=== PATIENT | male | born 1975 | race Two or more races ===

== ENCOUNTER 2025-07-11 13:27 | Inpatient (IN) | payer OTHER ==
[~2025-07-11] VITALS: Ht 177.8 cm; Wt 74.3 kg
[2025-07-11] MEDS: LABETALOL HCL 200 MG TAB PO ONE (15:30)
--- NOTE | 2025-07-11 15:31 | ED.PDOC ---
Psychiatric HPI Comments Reyes Hathaway is a 50-year-old male with past medical history of s chizophrenia, bipolar disorder and hypertension. The patient came to the ED with chief complain of 5 days of suicidal thoughts, thinking to hurt himself by cutting his wrists with a knife, associated with depressive mood, auditory and visual hallucinations. The patient denies thought of hurting others. On further questioning the patient reports he has run out his medications for schizophrenia and bipolar disorder 2 month ago. Today, the patient report having more hallucinations that tell him to hurt himself, this prompted his visit to the ED. Psychiatry consult was placed. Chief Complaint: Suicidal Time Seen by MD: 14:13 Reviewed Notes: Nurses Notes, Strip Picker Notes, Medications, Allergies Information Source: Patient Mode of Arrival: Ambulatory Severity: Unable to Care for Self Timing: Days Duration: Days Presents with: Depression, Unclear Thinking, Suicidal Ideation Attempt: Other (only thoughts to cut his wrists. ) Past Medical History PAST MEDICAL HISTORY: Depression, Schizophrenia Past Medical History (Other): Bipolar disorder Surgical History: Denies all surgeries Family History Family History: Reviewed,noncontributory to illness Social History Smoker: Cigarettes, Greater Than 1 Pack/Day Alcohol: Occasionally Drugs: Cocaine, Marijuana, Methamphetamine Lives In: Homeless Constitutional: denies: chills, diaphoresis, fatigue, fever, malaise, sweats, weakness, others EENTM: denies: blurred vision, double vision, ear bleeding, ear discharge, ear drainage, ear pain, ear ringing, eye pain, eye redness, hearing loss, mouth pain, mouth swelling, nasal discharge, nose bleeding, nose congestion, nose pain, photophobia, tearing, throat pain, throat swelling, voice changes, others Respiratory: denies: cough, hemoptysis, orthopnea, SOB at rest, shortness of breath, SOB with excertion, stridor, wheezing, others Cardiovascular: denies: chest pain, dizzy spells, diaphoresis, Dyspnea on e xertion, edema, irregular heart beat, left arm pain, lightheadedness, palpitations, PND, syncope, others Gastrointestinal: denies: abdomen distended, abdominal pain, blood streaked bowels, constipated, diarrhea, dysphagia, difficulty swallowing, hematemesis, melena, nausea, poor appetite, poor fluid intake, rectal bleeding, rectal pain, vomiting, others Genitourinary: denies: burning, dysuria, flank pain, frequency, hematuria, incontinence, penile discharge, penile sore, pain, testicle pain, testicle swelling, urgency, others Neurological: denies: dizziness, fainting, headache, left sided numbness, left sided weakness, numbness, paresthesia, pre-existing deficit, right sided numbness, right sided weakness, seizure, speech problems, tingling, tremors, weakness, others Musculoskeletal: denies: back pain, gout, joint pain, joint swelling, muscle pain, muscle stiffness, neck pain, others Integumetry: denies: bruises, change in color, change in hair/nails, dryness, laceration, lesions, lumps, rash, wounds, others Allergic/Immunocompromised: denies: Difficulty Healing, Frequent Infections, Hives, Itching, others Hematologic/Lymphatic: denies: anemia, blood clots, easy bleeding, easy bruising, swollen glands, others Endocrine: denies: excessive hunger, excessive sweating, excessive thirst, excessive urination, flushing, intolerance to cold, intolerance to heat, unexplained weight gain, unexplained weight loss, others Psychiatric: reports: bipolar disorder, depression, schizophrenia, suicidal Physical Exam Exam Comments Patient is alert, oriented x3 General Appearance: No Apparent Distress, Normal HEENT: Normal ENT Inspection, Pharynx Normal, TMs Normal Neck: Full Range of Motion, Non-Tender, Normal, Normal Inspection Respiratory: Chest Non-Tender, Lungs Clear, No Accessory Muscle Use, No Respiratory Distress, Normal Breath Sounds Cardiovascular: No Edema, No JVD, No Murmur, No Gallop, Normal Peripheral Pulses, Regular Rate/Rhythm Breast Exam: Deferred Gastrointestinal: No Organomegaly, Non Tender, No Pulsatile Mass, Normal Bowel Sounds, Soft Genitalia: Deferred Pelvic: Deferred Rectal: Deferred Extremities: No calf tenderness, Normal capillary refill, Normal inspection, Normal range of motion, Non-tender, No pedal edema Musculoskeletal : Apperance: Normal Neurologic: Alert (oriented x 3), summer camp counselor II-XII nml as Tested, No Motor Deficits, Normal Affect, Normal Mood, No Sensory Deficits Cerebellar Function: Normal Reflexes: Normal Skin: Dry, Normal Color, Warm Lymphatic: No Adenopathy Was a procedure done? Was a procedure done?: No Psych Differential Dx Psych. Differential Dx: Bipolar Disorder, Schizoprenia, Suicidal Suicidal Differential Dx: Bipolar Disorder, Substance Abuse X-Ray, Labs, Meds, VS Vital Signs Date Time Temp Pulse Resp B/P (MAP) Pulse Ox O2 Delivery O2 Flow Rate FiO2 07/11/25 18:31 109 20 162/111 (128) 98 07/11/25 13:30 98.2 129 18 151/112 96 98.2 Lab Test 07/11/25 15:00 Range/Units Urine Opiates Screen Neg NEGATIVE Urine Fentanyl Screen Neg NEGATIVE Urine Barbiturates Screen Neg NEGATIVE Urine Phencyclidine Screen Neg NEGATIVE Urine Amphetamines Screen Pos NEGATIVE Urine Benzodiazepines Screen Neg NEGATIVE Urine Cocaine Screen Neg NEGATIVE Urine Cannabinoids Screen Pos NEGATIVE X-Ray, Labs, Meds, VS Comment The patient was re-evaluated, he reports persistence of suicidal thoughts. Time of 1ST Reevaluation: 15:29 Reevaluation 1ST: Unchanged Patient Education/Counseling: Diagnosis, Treatment, Prognosis, Need For Follow Up Family Education/Counseling: No Family Present Departure 1 Departure Time of Disposition: 19:55 Impression: Primary Impression: Schizophrenia Additional Impression: Suicidal ideations Disposition: 09 ADMITTED INPATIENT Admit to: Med Surg (5150 hold for danger to self) Condition: Good Comments Discussed plan of care with Dr. Veronica Code status: Full code PCP: Not established Plan discussed with: Patient, the patient agrees with the admission plan. Critical Care Note Critical Care Time?: No Stability Stability form required: No Heart Score Heart Score: Heart Score Response (Comments) Value History N/A 0 EKG N/A 0 Age N/A 0 Risk Factors N/A 0 Troponin N/A 0 Total 0 DINA HUDSON RESIDENT Jul 11, 2025 15:30
--- NOTE | 2025-07-11 16:26 | DVHINCON2 ---
Date of Service if different f: Jul 11, 2025 Time of Service: 16:25 Consultation (GERALDINE) Labs Laboratory Tests Test 07/11/25 15:00 Vitals Vital Signs Date Time Temp Pulse Resp B/P (MAP) Pulse Ox O2 Delivery O2 Flow Rate FiO2 07/11/25 13:30 98.2 129 18 151/112 96 98.2 PSYCHIATRY CONSULTATION INITIAL EVALUATION REASON FOR CONSULT: SI HPI: 50yo M, history of Schizophrenia, who self-reported to the ED c/o SI. Per pt, he has been off his medication several weeks. He stopped them because they have not been helpful. He reports taking Zyprexa but cannot recall the dose, says he was on the medication for years. He reports ongoing command AH. Does not give details of what he hears. He says AH have been ongoing for 10 years, and denies any period that they have been better. He presented for help today because he feels like he is suffering. He subsequently had thoughts to go to a local bridge and jump. He reports h/o of suicide attempt over 20 years ago. He denies access to firearms. He reports use of meth 2 days ago, says he only uses on occasion. He reports daily alcohol use, does not quantify. He reports h/o tremors on withdrawal, but denies history of DTs. Pt does not feel safe to discharge. He thinks he may try to kill himself if he leaves the hospital. PSYCHIATRIC HISTORY: DIAGNOSIS: Reports h/o Schizophrenia ADMISSIONS: In the past, but denies any in recent years. MEDICATION TRIALS: Has trialed Risperidone, recently on Zyprexa. Says the medication that worked was Seroquel, recalls being on 600 mg nightly. OUTPATIENT CARE: Denies current care THERAPY: Denies current care SI/SELF-INJURY/SUICIDE ATTEMPT: reports h/o of suicide attempt over 20 years ago SUBSTANCE USE:per above RELEVANT MEDICAL HISTORY: HTN Hyperthyroidism SOCIAL HISTORY: Homeless ALLERGIES: Denies any MENTAL STATUS EXAMINATION: 50-year-old male who appears disheveled. He is calm but somewhat restless, with poor eye contact, though he remains cooperative during the interview. Speech is soft, of slowed rate, and minimally spontaneous, though coherent. His mood is described as suffering and his affect is constricted and dysphoric. Thought process is generally linear but slowed. Thought content is notable for active suicidal ideation with a stated plan to jump from a bridge, as well as ongoing command auditory hallucinations; he denies homicidal ideation. No overt delusions are elicited, though he endorses longstanding psychotic symptoms. Perceptually, he continues to experience chronic auditory hallucinations of a commanding nature. Cognition is grossly intact; he is alert and oriented to person, place. Insight is poor, judgment is impaired, as evidenced by medication nonadherence, substance use, and his stated intent to harm himself if discharged. DIFFERENTIAL DIAGNOSIS: Schizophrenia, chronic, with acute exacerbation Substance-induced psychotic disorder (methamphetamine-related) Major Depressive Disorder with psychotic features Schizoaffective disorder, depressive type Substance use disorders (methamphetamine, alcohol) Alcohol withdrawal risk (given daily use and reported tremors on cessation) ASSESSMENT: This is a 50-year-old homeless male with a known history of schizophrenia, recent medication nonadherence, daily alcohol use, and recent methamphetamine use who presents to the ED with active suicidal ideation and ongoing command auditory hallucinations. He has a history of prior suicide attempt and reports he may kill himself if discharged. He lacks current outpatient psychiatric care and social supports. Risk is high given active suicidal ideation with plan, ongoing command hallucinations, medication nonadherence, history of suicide attempt, homelessness and lack of social support, ongoing substance use. Protective factors are minimal. The patient himself states he does not feel safe to leave the hospital. He meets criteria for a 5150 (danger to self) hold and requires inpatient psychiatric hospitalization for stabilization, safety, and medication management. RECOMMENDATIONS: 1. LEGAL: Initiate 5150 hold for danger to self (active SI with plan, poor supports, ongoing psychosis). 2. DISPOSITION: Refer for inpatient psychiatric admission for safety, stabilization, and medication management. 3. MEDICATIONS: Restart Zyprexa 20 mg nightly as previously tolerated. Defer additional medication changes to the inpatient psychiatric team. 4. MEDICAL CONSIDERATIONS - Monitor for alcohol withdrawal given daily alcohol use and history of tremors. - Consider CIWA protocol, thiamine, folate, and multivitamins. - Routine labs (CMP, CBC, TSH, urine tox) and EKG if not already obtained. BUCKY MAO MD Jul 11, 2025 16:25
[2025-07-11 16:44] LABS: Amphetamine Screen, Urine Pos (NEGATIVE); Barbiturate Scree,Urine Neg (NEGATIVE); Benzodiazephine Screen, Urine Neg (NEGATIVE); Cannabinoid Screen, Urine Pos (NEGATIVE); Cocaine Screen, Urine Neg (NEGATIVE); Opiate Scree,Urine Neg (NEGATIVE); Phencyclidine Screen, Urine Neg (NEGATIVE)
[2025-07-11] MEDS: OLANZapine 5 MG TAB PO ONE (20:00)
[2025-07-11 20:48] VITALS: PULSE 78; RESP 20; O2SAT 97
[2025-07-11] MEDS: OLANZapine 5 MG TAB PO SCH (21:30)
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
[2025-07-11 21:59] LABS: Urine Protein, UAD TRACE (Negative)
[2025-07-11 22:09] LABS: INR 1.07 (0.9-1.15); Magnesium 2.0 mg/dL (1.6-2.6); Partial Thromboplastin Time 27.6 SEC (24.5-34.5); Prothrombin Time 11.3 sec (9.3-11.8); Triglycerides 42 mg/dL (< 150)
[2025-07-11 22:11] LABS: Cholesterol 157 mg/dL (< 200); HDL Cholesterol 55 mg/dL (40-59)
[2025-07-11 22:35] LABS: Lipase 62 U/L (12-53)
[2025-07-11 22:52] LABS: Hematocrit 42.7 % (41.0-53.0); Hemoglobin 14.6 g/dL (13.5-17.5); Mean Corpuscular Hemoglobin 31.5 pg (28.0-32.0); Mean Corpuscular Volume 92.3 fL (80.0-100.0); Nucleated Red Blood Cells % 0.1 %
[2025-07-11 23:11] LABS: Albumin 4.1 g/dL (3.2-4.8); Alkaline Phosphatase 72 U/L (46-116); Anion Gap 10 (5-15); BUN/Creatinine Ratio 13.5 (10.0-20.0); Blood Urea Nitrogen 13 mg/dL (9-23); Calcium 9.2 mg/dL (8.7-10.4); Carbon Dioxide 25 mmol/L (20-31); Chloride 104 mmol/L (98-107); Potassium 4.0 mmol/L (3.5-5.1); Sodium 139 mmol/L (136-145); Total Protein 7.5 g/dL (5.7-8.2)
[2025-07-11 23:12] LABS: Alanine Aminotransferase 139 U/L (7-40); Bilirubin, Total 0.7 mg/dL (0.2-1.0); Glucose 114 mg/dL (74-106)
[2025-07-11 23:14] LABS: Free T4 (Free Thyroxine) 0.92 ng/dL (0.89-1.76)
[2025-07-12 00:32] VITALS: BP 117/81; PULSE 79; RESP 19; TEMP 97.5; O2SAT 100
[2025-07-12 00:34] VITALS: BP 117/81; PULSE 79; RESP 19; TEMP 97.5; O2SAT 100
[2025-07-12 05:00] VITALS: BP 106/67; PULSE 74; RESP 19; TEMP 98; O2SAT 95
[2025-07-12] MEDS: LORazepam 2MG/ML-1ML VIAL IV SCH (05:10)
--- NOTE | 2025-07-12 05:27 | DVH ---
CHEST RADIOGRAPH Indication: Aspiration PNA Technique: Single frontal view of the chest was obtained COMPARISON: XR CHEST 1 VIEW on DOS: 07/06/25, XR CHEST 1 VIEW on DOS: 07/13/24 FINDINGS: Lines and Tubes: None Lungs: Clear Pleura: No effusion. No pneumothorax. Cardiomediastinal contours: Unremarkable Bones: Unremarkable IMPRESSION: 1. No acute disease.
[2025-07-12 05:58] LABS: Hematocrit 44.0 % (41.0-53.0); Hemoglobin 15.2 g/dL (13.5-17.5); Mean Corpuscular Hemoglobin 31.8 pg (28.0-32.0); Mean Corpuscular Volume 92.0 fL (80.0-100.0); Nucleated Red Blood Cells % 0.1 %
[2025-07-12 06:20] LABS: Albumin 3.9 g/dL (3.2-4.8); Alkaline Phosphatase 69 U/L (46-116); Anion Gap 10 (5-15); BUN/Creatinine Ratio 15.2 (10.0-20.0); Blood Urea Nitrogen 14 mg/dL (9-23); Calcium 9.0 mg/dL (8.7-10.4); Carbon Dioxide 26 mmol/L (20-31); Chloride 105 mmol/L (98-107); Glucose 78 mg/dL (74-106); Potassium 3.9 mmol/L (3.5-5.1); Sodium 141 mmol/L (136-145); Total Protein 7.1 g/dL (5.7-8.2)
[2025-07-12 06:21] LABS: Bilirubin, Total 0.8 mg/dL (0.2-1.0)
[2025-07-12 06:36] LABS: Alanine Aminotransferase 134 U/L (7-40)
[2025-07-12 08:00] VITALS: PULSE 86; RESP 18; O2SAT 98
[2025-07-12 09:00] VITALS: BP 114/82; PULSE 84; RESP 17; TEMP 98; O2SAT 100
[2025-07-12] MEDS: ENOXAPARIN SOD 40 MG/0.4 ML SYRINGE SC SCH (10:00)
[2025-07-12] MEDS: PANTOPRAZOLE 40 MG/10 ML VIAL INJ IV SCH (10:15)
[2025-07-12] MEDS: FOLIC ACID 1 MG TAB PO SCH (10:16)
[2025-07-12] MEDS: THIAMINE HCL 100 MG TAB PO SCH (10:16)
--- NOTE | 2025-07-12 12:51 | DVHPN2 ---
Subjective Denies any symptoms Reviewed: Care Plan, H&P, Labs, Medications Changes from previous H/P or p: No Changes General: Per HPI Objective Vitals Vital Signs Date Time Temp Pulse Resp B/P (MAP) Pulse Ox O2 Delivery O2 Flow Rate FiO2 07/12/25 09:00 98.0 84 17 114/82 (93) 100 98.0 07/12/25 08:00 Room Air* 0 21 Intake/Output Intake and Output 07/12/25 07:00 Intake Total 240 ml Balance 240 ml Intake Oral 240 ml General Appearance: Alert, Cooperative HEENT: Atraumatic, PERRLA Lungs: Clear to auscultation, Normal air movement Cardiovascular: Normal S1, Normal S2 Abdomen: Normal bowel sounds, Soft, No tenderness, No hepatospenomegaly Genitourinary: No Apparent Abnormalities Musculoskeletal: Normal sensory function, Normal motor function Neuro: Cranial nerves 3-12 NL Skin: Dry, Intact Psych/Mental Status: Other (Continues to have suicidal ideation) Medications Current Medications Medications Dose Ordered Sig/Tayler Route Start Time Stop Time Status Last Admin Dose Admin Enoxaparin Sodium 40 mg DAILY SC 07/11/25 21:30 Olanzapine 20 mg DAILY PO 07/11/25 21:30 07/12/25 10:16 20 MG Thiamine HCl 100 mg DAILY PO 07/12/25 10:00 07/12/25 10:16 100 MG Folic Acid 1 mg DAILY PO 07/12/25 10:00 07/12/25 10:16 1 MG Lorazepam 1 mg Q6H IV 07/11/25 21:30 07/12/25 11:50 1 MG Pantoprazole Sodium 40 mg DAILY IV 07/12/25 10:00 07/12/25 10:15 40 MG Laboratory Results Laboratory Tests 07/12/25 05:06 Chemistry Test 07/11/25 21:43 07/11/25 21:45 07/12/25 05:06 Magnesium Level 2.0 mg/dL (1.6-2.6) Phosphorus Level 3.3 mg/dL (2.4-5.1) Albumin 4.1 g/dL (3.2-4.8) 3.9 g/dL (3.2-4.8) Calcium Level 9.2 mg/dL (8.7-10.4) 9.0 mg/dL (8.7-10.4) Total Protein 7.5 g/dL (5.7-8.2) 7.1 g/dL (5.7-8.2) Coagulation Test 07/11/25 21:43 Prothrombin Time 11.3 sec (9.3-11.8) Prothrombin Time INR 1.07 (0.9-1.15) Activated Partial Thromboplast Time 27.6 SEC (24.5-34.5) Lipid panel Test 07/11/25 21:43 Cholesterol Level 157 mg/dL (< 200) HDL Cholesterol 55 mg/dL (40-59) Lipase 62 U/L (12-53) H Triglycerides Level 42 mg/dL (< 150) LFT Test 07/11/25 21:45 07/12/25 05:06 Alanine Aminotransferase (ALT) 139 U/L (7-40) H 134 U/L (7-40) H Alkaline Phosphatase 72 U/L (46-116) 69 U/L (46-116) Aspartate Amino Transferase (AST) 75 U/L (13-40) H 72 U/L (13-40) H Total Bilirubin 0.7 mg/dL (0.2-1.0) 0.8 mg/dL (0.2-1.0) HgA1c, TSH Test 07/11/25 21:43 Hemoglobin A1c 4.9 % A1C (<5.7) Thyroid Stimulating Hormone (TSH) 17.42 uIU/mL (0.55-4.78) H Urinalysis Test 07/11/25 15:00 Urine Color Yellow (Yellow) Urine Clarity Clear (Clear) Urine pH 6.5 (5.0-9.0) Urine Specific [place] 1.031 (1.001-1.035) Urine Protein Trace (Negative) H Urine Ketones Negative (Negative) Urine Blood Negative /uL (Negative) Urine Nitrite Negative (Negative) Urine Bilirubin Negative (Negative) Urine Urobilinogen Normal mg/dL (Negative) Urine Leukocyte Esterase Negative /uL (Negative) Urine RBC 1 /hpf (0 - 3) Urine Microscopic WBC 1 /HPF (0-3) Urine Squamous Epithelial Cells Few /hpf (<5) Urine Bacteria None seen /hpf (None Seen) Urine Mucus Few (None Seen) Urine Glucose Normal mg/dL (Normal) Labs and/or images reviewed: Labs reviewed by me, Image(s) reviewed by me Assessment/Plan Assessment/Plan Impression: -Suicidal Ideation with Recommendation for 5150 and transfer to inpatient psychiatry -Polysubstance abuse Plan: -Psych consult recommendations reviewed: Continue with Zyprexa -Social service consult for Transfer to inpatient psychiatry -1:1 sitter Total time spent with patient discussing and formulating plan of care: 35 minutes. This medical document was created using an electronic medical record system with [employer] dictation system. Although this document has been carefully reviewed, there may still be some phonetic and typographical errors. These areas are purely typographical due to imperfections of the software programs, and do not reflect any compromise in the patient's medical care. Plan discussed with: Patient, Other (RN) My Orders Orders - JULIA BAER NP Procedure Category Date Status Time * Sales Advisor CONS 07/12/25 Transmitted Consult Communication Order ORDERS 07/12/25 Transmitted 11:34 Date of Service: Jul 12, 2025 Billing Provider: JULIA BAER NP Common Visit Codes: [id number] INP/OBS CARE(HIGH) JULIA BAER NP Jul 12, 2025 12:51
[2025-07-12 21:00] VITALS: BP 118/80; PULSE 79; RESP 18; TEMP 97.3; O2SAT 98
[2025-07-13 01:00] VITALS: BP 107/78; PULSE 74; RESP 17; O2SAT 96
[2025-07-13 04:11] VITALS: BP 107/78; PULSE 74; RESP 17; TEMP 97.3; O2SAT 96
[2025-07-13 05:00] VITALS: BP 113/87; PULSE 71; RESP 17; TEMP 97.4; O2SAT 95
[2025-07-13 08:00] VITALS: PULSE 80; RESP 18; O2SAT 97
[2025-07-13 08:49] VITALS: BP 114/87; PULSE 80; RESP 18; TEMP 97.6; O2SAT 95
[2025-07-13 12:32] VITALS: BP 111/79; PULSE 77; RESP 18; TEMP 97.8; O2SAT 93
--- NOTE | 2025-07-13 12:38 | DVHDS2 ---
Discharge Summary Date of Admission Jul 11, 2025 at 21:19 Date of Discharge: Jul 13, 2025 Admitting Diagnosis Suicidal ideation Labs/Diagnostic Data: Laboratory Results Test 07/12/25 05:06 07/11/25 21:45 07/11/25 21:43 07/11/25 15:00 White Blood Count 4.8 10^3/uL (4.4-10.8) Red Blood Count 4.78 10^6/uL (4.5-5.90) Hemoglobin 15.2 g/dL (13.5-17.5) Hematocrit 44.0 % (41.0-53.0) Mean Corpuscular Volume 92.0 fL (80.0-100.0) Mean Corpuscular Hemoglobin 31.8 pg (28.0-32.0) Mean Corpuscular Hemoglobin Concent 34.6 g/dL (32.0-36.0) Red Cell Distribution Width 14.2 % (11.8-14.3) Platelet Count 190 10^3/uL (140-450) Mean Platelet Volume 8.7 fL (6.9-10.8) Neutrophils (%) (Auto) 51.9 % (37.0-80.0) Lymphocytes (%) (Auto) 34.3 % (10.0-50.0) Monocytes (%) (Auto) 9.3 % (0.0-12.0) Eosinophils (%) (Auto) 4.1 % (0.0-7.0) Basophils (%) (Auto) 0.4 % (0.0-2.0) Neutrophils # (Auto) 2.5 10 ^3/uL (1.6-8.6) Lymphocytes # (Auto) 1.7 10 ^3/uL (0.4-5.4) Monocytes # (Auto) 0.4 10 ^3/uL (0-1.3) Eosinophils # (Auto) 0.2 10 ^3/uL (0-0.8) Basophils # (Auto) 0 10 ^3/uL (0-0.2) Nucleated Red Blood Cells 0.1 % Sodium Level 141 mmol/L (136-145) Potassium Level 3.9 mmol/L (3.5-5.1) Chloride Level 105 mmol/L (98-107) Carbon Dioxide Level 26 mmol/L (20-31) Anion Gap 10 (5-15) Blood Urea Nitrogen 14 mg/dL (9-23) Creatinine 0.92 mg/dL (0.700-1.30) Glomerular Filtration Rate Calc 101 mL/min (>90) BUN/Creatinine Ratio 15.2 (10.0-20.0) Serum Glucose 78 mg/dL (74-106) Calcium Level 9.0 mg/dL (8.7-10.4) Total Bilirubin 0.8 mg/dL (0.2-1.0) Aspartate Amino Transferase (AST) 72 U/L (13-40) Alanine Aminotransferase (ALT) 134 U/L (7-40) Alkaline Phosphatase 69 U/L (46-116) Total Protein 7.1 g/dL (5.7-8.2) Albumin 3.9 g/dL (3.2-4.8) Free Thyroxine (T4) Calculated 0.92 ng/dL (0.89-1.76) Total Triiodothyronine (TT3) 0.99 ng/mL (0.60-1.81) Prothrombin Time 11.3 sec (9.3-11.8) Prothrombin Time INR 1.07 (0.9-1.15) Activated Partial Thromboplast Time 27.6 SEC (24.5-34.5) Hemoglobin A1c 4.9 % A1C (<5.7) Phosphorus Level 3.3 mg/dL (2.4-5.1) Magnesium Level 2.0 mg/dL (1.6-2.6) C-Reactive Protein High Sensitivity 0.32 mg/dL (<1.0) Triglycerides Level 42 mg/dL (< 150) Cholesterol Level 157 mg/dL (< 200) LDL Cholesterol 99 mg/dL (< 100) HDL Cholesterol 55 mg/dL (40-59) Lipase 62 U/L (12-53) Vitamin B12 Level 730 pg/mL (211-911) Vitamin D 25-Hydroxy 47.1 ng/mL (30.0-100) Thyroid Stimulating Hormone (TSH) 17.42 uIU/mL (0.55-4.78) Plasma/Serum Blood Alcohol < 3.0 mg/dL (<10) Urine Color Yellow (Yellow) Urine Clarity Clear (Clear) Urine pH 6.5 (5.0-9.0) Urine Specific Wolbach 1.031 (1.001-1.035) Urine Protein Trace (Negative) Urine Ketones Negative (Negative) Urine Blood Negative /uL (Negative) Urine Nitrite Negative (Negative) Urine Bilirubin Negative (Negative) Urine Urobilinogen Normal mg/dL (Negative) Urine Leukocyte Esterase Negative /uL (Negative) Urine RBC 1 /hpf (0 - 3) Urine Microscopic WBC 1 /HPF (0-3) Urine Squamous Epithelial Cells Few /hpf (<5) Urine Bacteria None seen /hpf (None Seen) Urine Mucus Few (None Seen) Urine Glucose Normal mg/dL (Normal) Urine Opiates Screen Neg (NEGATIVE) Urine Fentanyl Screen Neg (NEGATIVE) Urine Barbiturates Screen Neg (NEGATIVE) Urine Phencyclidine Screen Neg (NEGATIVE) Urine Amphetamines Screen Pos (NEGATIVE) Urine Benzodiazepines Screen Neg (NEGATIVE) Urine Cocaine Screen Neg (NEGATIVE) Urine Cannabinoids Screen Pos (NEGATIVE) Other Laboratory Tests 07/12/25 05:06 Brief Hx & Hospital Course: History of Present Illness This is a 50-year-old male with past medical history of schizophrenia, bipolar disorder, hypertension presented to the ER with chief complain of 5 days of suicidal thoughts. Patient reports he was attempting suicide by jumping off a bridge in [facility] today from where he was brought to the ER. He reports suicidal ideation and thinks of hurting himself by cutting his wrists with a knife. He said "voices in his head asked me to attempt suicide". He also reports visual hallucinations, unable to elaborate further. He reports noncompliance on medications, he reportedly "discontinued medications 4-5 months ago as they were not helpful and voices were still there." Course of hospitalization: Patient has been medically cleared. Psychiatry consultation was obtained with the hospital with recommendations reviewed. Patient will be transferred to voluntary inpatient psychiatry facility today. Patient will be continued on Zyprexa until transfer. Physical examination General: Alert and Oriented x3. No acute distress. Well-nourished. Eyes: EOMI. Anicteric. HENT: Moist mucous membranes. Lungs: Clear to auscultation bilaterally. No accessory muscle use. Cardiovascular: Regular rate and rhythm. No murmur. No JVD. Abdomen: Soft, non-tender and non-distended. No palpable masses. Extremities: No edema. Non-tender. Skin: No rashes or lesions. Warm. Neurologic: No focal neurological deficits. CN II-XII grossly intact, but not individually tested. Psychiatric: Cooperative. Appropriate mood and affect. Total time spent with patient discussing and formulating plan of care: 35 minutes. This medical document was created using an electronic medical record system with [employer] dictation system. Although this document has been carefully reviewed, there may still be some phonetic and typographical errors. These areas are purely typographical due to imperfections of the software programs, and do not reflect any compromise in the patient's medical care. Condition at Discharge: Fair Final Diagnosis/Problems List Suicide Ideation with attempt -Suicidal Ideation with Recommendation for 5150 and transfer to inpatient psychiatry -Polysubstance abuse Discharge Disposition: Psychiatric Facility Discharge Instruct/Medications Diet: Cardiac 2g Na,low cholest Activity: No Restrictions, As Tolerated Follow Up/Referral: per accepting provider Medications: Refer to medication reconciliation form Unable to Obtain Active Prescriptions or Reported Meds 36 Discharge Statement: "Patient was advised to return to the ER or call 911 if any headaches, dizziness, shortness of breath, chest pain, abdominal pain, bleeding, fevers, or worsening of medical condition. Patient was counseled about treatment plan, medications, possible side effects, patientverbalized understanding. All questions were answered to the best of my ability. This discharge took greater then 30 minutes in planning, reviewing documentation, counseling the patient, and discussing with other team members." ASSESSMENT ASSESSMENT Assessment Suicide Ideation with attempt Date of Service: Jul 13, 2025 Billing Provider: JULIA BAER NP Common Visit Codes: 16185-[id number] CARE 30-74 MIN JULIA BAER NP Jul 13, 2025 12:38
== END 2025-07-13 14:00 | DRG 58 ==
LOC: ER 13:27 → OVERFLOW 21:19 → WEST WING 21:39 → OVERFLOW 21:39 → WEST WING 23:47
PROVIDERS: ADMIT Nurse Practitioner Acute Care; ATTEND Nurse Practitioner Acute Care
DX: R25.1 Tremor, unspecified (principal); G92.8 Other toxic encephalopathy; R45.851 Suicidal ideations; Z59.00 Homelessness unspecified; G92.9 Unspecified toxic encephalopathy; F20.9 Schizophrenia, unspecified; E05.90 Thyrotoxicosis, unspecified without thyrotoxic crisis or storm; F31.9 Bipolar disorder, unspecified; F19.10 Other psychoactive substance abuse, uncomplicated; I10 Essential (primary) hypertension; F17.210 Nicotine dependence, cigarettes, uncomplicated; Z91.148 Patient's other noncompliance with medication regimen for other reason; Z91.51 Personal history of suicidal behavior; Z79.899 Other long term (current) drug therapy
CPT/HCPCS: 36415; 71045; 80053; 80061; 80307; 80320; 81001; 82306; 82607; 83036; 83690; 83735; 84100; 84439; 84443; 84480; 85025; 85610; 85730; 86141; 87040; 87086; 96374; G0378; J2470